=== PATIENT | female | born 1945 | race Caucasian/White ===

== ENCOUNTER 2017-02-22 21:26 | Inpatient (IN) | payer MEDICARE ==
[~2017-02-22] VITALS: Ht 160 cm; Wt 86.1 kg
[~2017-02-22 21:26] MED LIST: CALCIUM600 M2 PO; DIOVAN80 MG PO; LECITHIN-191200 MG PO; LEVOTHYROXIN75 MCG PO; LORTAB 5/3255 MG PO; MAGNESIUM-OX400 MG PO; METFORMIN500 MG PO; MULTI 501 PO
[2017-02-22] MEDS ORDERED: ATORVASTATIN CA10 MG PO (22:12)
[2017-02-22] MEDS ORDERED: CALCIUM 600+D 61 TA1 PO (22:13)
[2017-02-22] MEDS ORDERED: Levaquin PO (22:14)
[2017-02-22] MEDS ORDERED: CLARITIN10 M1 PO (22:15)
[2017-02-22] MEDS ORDERED: LOSARTAN POTASS50 MG PO (22:17)
[2017-02-22] MEDS ORDERED: SERTRALINE HCL50 MG PO (22:18)
[2017-02-22] MEDS ORDERED: COMPAZINE5 MG/TAB PO (22:18)
[2017-02-22] MEDS ORDERED: ZOFRAN ODT4 MG PO (22:20)
[2017-02-22] MEDS ORDERED: MULTI VIT PO (22:21)
[2017-02-22 22:33] LABS: HEMATOCRIT 25.4 % (37.0-47.0); HEMOGLOBIN 8.8 g/dl (12.0-16.0); IMMATURE GRANULOCYTES 0.3 % (0.0-1.0); MEAN CORPUSCULAR HGB 31.5 pG CALC (26.0-32.0); MEAN CORPUSCULAR HGB CONC 34.6 g/L CALC (32.0-36.0); NEUT# 2.25 thou/uL (2.00-7.15); RED BLOOD COUNT 2.79 mill/uL (4.20-5.60); RED CELL DISTRI WIDTH 17.6 % (11.5-15.5)
[2017-02-22 22:47] LABS: ALBUMIN 3.8 g/dL (3.2-5.0); ALKALINE PHOSPHATASE 53 u/l (38-126); ANION GAP 15 (6-22 (CALC)); BILIRUBIN, TOTAL 0.9 mg/dL (0.0-1.4); BUN 17 mg/dL (8-23); BUN/CREATININE RATIO 24 (12-20 (CALC)); CALCIUM 8.6 mg/dL (8.4-10.2); CARBON DIOXIDE 24 mmol/l (22-30); CHLORIDE 98 mmol/l (95-108); CREATININE 0.7 mg/dL (0.5-1.0); GFR > 60 ML/MIN (>=60 (CALC)); GFR FOR AFR.AMER. > 60 ML/MIN (>=60 (CALC)); GLUCOSE 185 mg/dL (82-115); POTASSIUM 4.6 mmol/l (3.5-5.1); SGOT/AST 19 u/l (9-36); SGPT/ALT 46 u/l (11-66); SODIUM 133 mmol/l (137-146); TOTAL PROTEIN 6.1 g/dL (6.3-8.2)
[2017-02-22 22:48] LABS: INFLUENZA A NONE DETECTED (NONE DETECT); INFLUENZA B NONE DETECTED (NONE DETECT)
[2017-02-22 23:25] LABS: URINE BILIRUBIN - DIPSTICK NEGATIVE (NEGATIVE); URINE BLOOD DIPSTICK NEGATIVE (NEGATIVE); URINE CLARITY CLEAR; URINE COLOR YELLOW; URINE GLUCOSE - DIPSTICK NEGATIVE (NEGATIVE); URINE KETONE NEGATIVE (NEGATIVE); URINE LEUK ESTERASE TRACE (NEGATIVE); URINE NITRITE - DIPSTICK NEGATIVE (Negative); URINE PROTEIN - DIPSTICK NEGATIVE (NEG-TRACE); URINE SPECIFIC GRAVITY 1.015; URINE UROBILINOGEN - DIPSTICK 0.2 E.U./dL (0.2)
[2017-02-23 01:34] VITALS: BP 115/60
[2017-02-23 04:22] VITALS: BP 109/69
[2017-02-23 07:45] VITALS: BP 121/69
[2017-02-23 12:35] LABS: C-REACTIVE PROTEIN > 9.0 mg/dL (0-0.9)
[2017-02-23 15:29] VITALS: BP 119/71
[2017-02-23 19:38] VITALS: BP 115/62
[2017-02-24 04:11] VITALS: BP 100/64
[2017-02-24 05:54] LABS: HEMATOCRIT 22.8 % (37.0-47.0); HEMOGLOBIN 7.9 g/dl (12.0-16.0); MEAN CELL VOLUME 91.6 fL CALC (80.0-100.0); MEAN CORPUSCULAR HGB 31.7 pG CALC (26.0-32.0); MEAN CORPUSCULAR HGB CONC 34.6 g/L CALC (32.0-36.0); NEUT# 2.3 thou/uL (2.00-7.15); RED BLOOD COUNT 2.49 mill/uL (4.20-5.60); RED CELL DISTRI WIDTH 17.3 % (11.5-15.5)
[2017-02-24 06:09] LABS: ANION GAP 12 (6-22 (CALC)); BUN 14 mg/dL (8-23); BUN/CREATININE RATIO 26 (12-20 (CALC)); CALCIUM 8.7 mg/dL (8.4-10.2); CARBON DIOXIDE 26 mmol/l (22-30); CHLORIDE 102 mmol/l (95-108); CREATININE 0.5 mg/dL (0.5-1.0); GFR > 60 ML/MIN (>=60 (CALC)); GFR FOR AFR.AMER. > 60 ML/MIN (>=60 (CALC)); GLUCOSE 231 mg/dL (82-115); POTASSIUM 4.5 mmol/l (3.5-5.1); SODIUM 135 mmol/l (137-146)
[2017-02-24 08:27] VITALS: BP 121/68
[2017-02-24] MEDS ORDERED: PREDNISONE20 MG PO (11:35)
== END 2017-02-24 13:23 | disposition home or self-care (01) | DRG 545 ==
LOC: ENPENDDIS → ED 21:26 → ED-I 02-23 → ED 02-23 00:44 → MS2 02-23 00:45
PROVIDERS: Emergency Medicine; Internal Medicine; Nurse Practitioner Family; ADMIT Internal Medicine; ATTEND Internal Medicine
DX: M35.3 Polymyalgia rheumatica (principal); D61.810 Antineoplastic chemotherapy induced pancytopenia; E11.69 Type 2 diabetes mellitus with other specified complication; T45.1X5A Adverse effect of antineoplastic and immunosuppressive drugs, initial encounter; C50.919 Malignant neoplasm of unspecified site of unspecified female breast; Z79.84 Long term (current) use of oral hypoglycemic drugs; E78.5 Hyperlipidemia, unspecified; I10 Essential (primary) hypertension; F32.9 Major depressive disorder, single episode, unspecified; E03.9 Hypothyroidism, unspecified

== ENCOUNTER 2017-03-20 12:57 | Inpatient (IN) | payer MEDICARE ==
[~2017-03-20] VITALS: Ht 160 cm; Wt 84.4 kg
[~2017-03-20 12:57] MED LIST changes: +ATORVASTATIN CA10 MG PO; +CALCIUM 600+D 61 TA1 PO; +CLARITIN10 M1 PO; +COMPAZINE5 MG/TAB PO; +LOSARTAN POTASS50 MG PO; +Levaquin PO; +MULTI VIT PO; +PREDNISONE20 MG PO; +SERTRALINE HCL50 MG PO; +ZOFRAN ODT4 MG PO
[2017-03-20 15:14] LABS: HEMOGLOBIN 7.7 g/dl (12.0-16.0); IMMATURE GRANULOCYTES 1.4 % (0.0-1.0); MEAN CELL VOLUME 96.6 fL CALC (80.0-100.0); MEAN CORPUSCULAR HGB 32.4 pG CALC (26.0-32.0); MEAN CORPUSCULAR HGB CONC 33.5 g/L CALC (32.0-36.0); NEUT# 2.97 thou/uL (2.00-7.15); RED BLOOD COUNT 2.38 mill/uL (4.20-5.60); RED CELL DISTRI WIDTH 19.9 % (11.5-15.5)
[2017-03-20 15:57] LABS: ALBUMIN 3.6 g/dL (3.2-5.0); ALKALINE PHOSPHATASE 56 u/l (38-126); ANION GAP 16 (6-22 (CALC)); BUN 13 mg/dL (8-23); BUN/CREATININE RATIO 20 (12-20 (CALC)); CALCIUM 8.6 mg/dL (8.4-10.2); CARBON DIOXIDE 24 mmol/l (22-30); CHLORIDE 100 mmol/l (95-108); CREATININE 0.7 mg/dL (0.5-1.0); GFR > 60 ML/MIN (>=60 (CALC)); GFR FOR AFR.AMER. > 60 ML/MIN (>=60 (CALC)); GLUCOSE 179 mg/dL (82-115); POTASSIUM 3.9 mmol/l (3.5-5.1); SGOT/AST 21 u/l (9-36); SGPT/ALT 45 u/l (11-66); SODIUM 135 mmol/l (137-146)
[2017-03-20 16:53] LABS: URINE BILIRUBIN - DIPSTICK NEGATIVE (NEGATIVE); URINE BLOOD DIPSTICK NEGATIVE (NEGATIVE); URINE CLARITY CLEAR; URINE COLOR YELLOW; URINE GLUCOSE - DIPSTICK NEGATIVE (NEGATIVE); URINE KETONE NEGATIVE (NEGATIVE); URINE LEUK ESTERASE TRACE (NEGATIVE); URINE NITRITE - DIPSTICK NEGATIVE (Negative); URINE PH 5.5 (4.5-8.0); URINE PROTEIN - DIPSTICK NEGATIVE (NEG-TRACE); URINE SPECIFIC GRAVITY 1.015; URINE UROBILINOGEN - DIPSTICK 0.2 E.U./dL (0.2)
[2017-03-20 18:53] VITALS: BP 121/74
[2017-03-21] VITALS (9 sets, daily range): BP systolic 92–143; BP diastolic 53–83
[2017-03-21 06:05] LABS: IMMATURE GRANULOCYTES 1.8 % (0.0-1.0); MEAN CELL VOLUME 98.6 fL CALC (80.0-100.0); MEAN CORPUSCULAR HGB 33.2 pG CALC (26.0-32.0); MEAN CORPUSCULAR HGB CONC 33.7 g/L CALC (32.0-36.0); NEUT# 2.52 thou/uL (2.00-7.15); RED BLOOD COUNT 2.11 mill/uL (4.20-5.60); RED CELL DISTRI WIDTH 19.9 % (11.5-15.5)
[2017-03-21 06:08] LABS: HEMATOCRIT 20.8 % (37.0-47.0)
[2017-03-21 06:25] LABS: ANION GAP 14 (6-22 (CALC)); BUN 9 mg/dL (8-23); BUN/CREATININE RATIO 14 (12-20 (CALC)); CALCIUM 7.9 mg/dL (8.4-10.2); CARBON DIOXIDE 22 mmol/l (22-30); CHLORIDE 104 mmol/l (95-108); CREATININE 0.6 mg/dL (0.5-1.0); GFR > 60 ML/MIN (>=60 (CALC)); GFR FOR AFR.AMER. > 60 ML/MIN (>=60 (CALC)); GLUCOSE 128 mg/dL (82-115); POTASSIUM 4.1 mmol/l (3.5-5.1); SODIUM 136 mmol/l (137-146)
[2017-03-22 04:32] VITALS: BP 117/74
[2017-03-22 06:00] LABS: HEMATOCRIT 25.9 % (37.0-47.0); HEMOGLOBIN 8.7 g/dl (12.0-16.0); MEAN CELL VOLUME 95.6 fL CALC (80.0-100.0); MEAN CORPUSCULAR HGB 32.1 pG CALC (26.0-32.0); MEAN CORPUSCULAR HGB CONC 33.6 g/L CALC (32.0-36.0); NEUT# 4.08 thou/uL (2.00-7.15); RED BLOOD COUNT 2.71 mill/uL (4.20-5.60); RED CELL DISTRI WIDTH 18.8 % (11.5-15.5)
[2017-03-22 06:18] LABS: ANION GAP 14 (6-22 (CALC)); BUN 9 mg/dL (8-23); BUN/CREATININE RATIO 18 (12-20 (CALC)); C-REACTIVE PROTEIN 7.1 mg/dL (0-0.9); CALCIUM 8.6 mg/dL (8.4-10.2); CARBON DIOXIDE 25 mmol/l (22-30); CHLORIDE 102 mmol/l (95-108); CREATININE 0.5 mg/dL (0.5-1.0); GFR > 60 ML/MIN (>=60 (CALC)); GFR FOR AFR.AMER. > 60 ML/MIN (>=60 (CALC)); GLUCOSE 246 mg/dL (82-115); MAGNESIUM 1.9 mg/dL (1.6-2.3); POTASSIUM 4.5 mmol/l (3.5-5.1); SODIUM 137 mmol/l (137-146)
[2017-03-22 06:25] LABS: IMMATURE GRANULOCYTES 5.2 % (0.0-1.0)
[2017-03-22 08:00] VITALS: BP 124/75
[2017-03-22 10:52] VITALS: BP 144/79
[2017-03-22] MEDS ORDERED: PREDNISONE10 MG PO (13:05)
== END 2017-03-22 14:28 | disposition home or self-care (01) | DRG 812 ==
LOC: ED 12:57 → ED-I 14:04 → ED 14:04 → ED-I 17:01 → ED 17:19 → MS2 17:20
PROVIDERS: Emergency Medicine; ADMIT Internal Medicine; ATTEND Internal Medicine
PROC: 30233N1 Transfusion of Nonautologous Red Blood Cells into Peripheral Vein, Percutaneous Approach (ICD-10-PCS; principal; 2017-03-21)
DX: D64.81 Anemia due to antineoplastic chemotherapy (principal); G62.9 Polyneuropathy, unspecified; C50.919 Malignant neoplasm of unspecified site of unspecified female breast; T45.1X5A Adverse effect of antineoplastic and immunosuppressive drugs, initial encounter; M25.50 Pain in unspecified joint; I10 Essential (primary) hypertension; E03.9 Hypothyroidism, unspecified; E78.5 Hyperlipidemia, unspecified; F17.200 Nicotine dependence, unspecified, uncomplicated; F32.9 Major depressive disorder, single episode, unspecified; E11.9 Type 2 diabetes mellitus without complications; M35.3 Polymyalgia rheumatica
CPT/HCPCS: G0378; J1650; P9016

== ENCOUNTER 2017-04-06 19:58 | Inpatient (IN) | payer MEDICARE ==
[~2017-04-06] VITALS: Ht 160 cm; Wt 84.0 kg
[~2017-04-06 19:58] MED LIST changes: +PREDNISONE10 MG PO
--- NOTE | 2017-04-06 21:06 | NUR ---
PT TO RM 15 VIA WHEELCHAIR.
--- NOTE | 2017-04-06 21:20 | NUR ---
DR LEYVA AT BEDSIDE
[2017-04-06 22:00] LABS: URINE BILIRUBIN - DIPSTICK NEGATIVE (NEGATIVE); URINE BLOOD DIPSTICK TRACE-INTACT (NEGATIVE); URINE CLARITY CLEAR; URINE COLOR YELLOW; URINE GLUCOSE - DIPSTICK NEGATIVE (NEGATIVE); URINE KETONE NEGATIVE (NEGATIVE); URINE LEUK ESTERASE NEGATIVE (NEGATIVE); URINE NITRITE - DIPSTICK NEGATIVE (Negative); URINE PROTEIN - DIPSTICK NEGATIVE (NEG-TRACE); URINE SPECIFIC GRAVITY 1.015; URINE UROBILINOGEN - DIPSTICK 0.2 E.U./dL (0.2)
[2017-04-06 22:37] LABS: HEMATOCRIT 27.1 % (37.0-47.0); IMMATURE GRANULOCYTES 0.3 % (0.0-1.0); MEAN CELL VOLUME 97.1 fL CALC (80.0-100.0); MEAN CORPUSCULAR HGB 32.3 pG CALC (26.0-32.0); MEAN CORPUSCULAR HGB CONC 33.2 g/L CALC (32.0-36.0); NEUT# 5.11 thou/uL (2.00-7.15); RED BLOOD COUNT 2.79 mill/uL (4.20-5.60); RED CELL DISTRI WIDTH 16.3 % (11.5-15.5)
--- NOTE | 2017-04-06 22:42 | NUR ---
PT TO XRAY.
[2017-04-06 22:43] LABS: ALBUMIN 3.4 g/dL (3.2-5.0); ALKALINE PHOSPHATASE 65 u/l (38-126); ANION GAP 13 (6-22 (CALC)); BILIRUBIN, TOTAL 0.8 mg/dL (0.0-1.4); BUN 11 mg/dL (8-23); BUN/CREATININE RATIO 16 (12-20 (CALC)); CALCIUM 8.3 mg/dL (8.4-10.2); CARBON DIOXIDE 25 mmol/l (22-30); CHLORIDE 100 mmol/l (95-108); CREATININE 0.7 mg/dL (0.5-1.0); GFR > 60 ML/MIN (>=60 (CALC)); GFR FOR AFR.AMER. > 60 ML/MIN (>=60 (CALC)); GLUCOSE 185 mg/dL (82-115); SGOT/AST 20 u/l (9-36); SGPT/ALT 47 u/l (11-66); SODIUM 134 mmol/l (137-146); TOTAL PROTEIN 5.9 g/dL (6.3-8.2)
[2017-04-06 22:51] LABS: INFLUENZA A NONE DETECTED (NONE DETECT); INFLUENZA B NONE DETECTED (NONE DETECT)
--- NOTE | 2017-04-06 23:10 | NUR ---
RETURNED FROM CT.
--- NOTE | 2017-04-06 23:10 | NUR ---
LAB AT BEDSIDE FOR BC#2
--- NOTE | 2017-04-07 03:00 | NUR ---
SPOUSE REQUESTED INFO ON DISPOSITION, INFORMED DR LEYVA WOULD BE IN SHORTLY.
--- NOTE | 2017-04-07 03:35 | NUR ---
DR LEYVA AT BEDSIDE TO DISCUSS ADMISSION
--- NOTE | 2017-04-07 04:22 | NUR ---
PT WITHOUT DISTRESS. WAITING ON RM ASSIGNMENT.
--- NOTE | 2017-04-07 04:28 | NUR ---
REPORT CALLED TO [facility]
--- NOTE | 2017-04-07 04:30 | NUR ---
PT TRANSFERRED TO FLOOR VIA STRETCHER IN STABLE CONDITION ACCOMPANIED BY LOUIS CHAVEZ AND SPOUSE;PT AMBULATED TO BEDSIDE WITH A STEADY GAIT;PT ORIENTED TO ROOM AND CALL LIGHT SYSTEM AND VERBALIZES UNDERSTANDING;ASSESSMENT COMPLETED;PT A&O X3;POWER PORT TO LEFT CHEST FLUSHED AND PATENT;PT DENIES ANY PAIN OR DISCOMFORTS AT THIS TIME;SKIN INTACT;BS OF 160 OBTAINED;PT NOTED TO BE A RIGHT MASECTOMY PT,LIMB ALERT PLACED ON PT;PT REPORTS LAST BM TO BE ON 04/06;PT DENIES ANY NEEDS AT THIS TIME;PT EDUCATED TO CALL FOR ASSISTANCE IF NEEDED;ALL SAFETY PRECAUTIONS REINFORCED;BED IN LOWEST POSITION WITH CALL LIGHT IN REACH;WILL CONTINUE TO MONITOR
--- NOTE | 2017-04-07 04:35 | NUR ---
PT TO 289 WITH BELONGINGS.
[2017-04-07 04:50] VITALS: BP 107/75
[2017-04-07 07:30] VITALS: BP 103/65
--- NOTE | 2017-04-07 07:30 | NUR ---
REPORT RECIVED FROM LOUIS MEYER. ASSESSMENT COMPLETD. PT SITTING UP IN BED. NO C/O AT THIS TIME. VSS. POC DISCUSSED. PT VERBALIZES UNDERSTANDING. WILL CONTINUE TO MONITOR. CALL LIGHT IN REACH.
[2017-04-07 13:25] LABS: MAGNESIUM 1.8 mg/dL (1.6-2.3)
--- NOTE | 2017-04-07 14:01 | NUR ---
PT MEDICATED FOR BLE PAIN. IVF INFUSING AT THIS TIME PER MD ORDER. AT BEDSIDE. NO C/O AT THIS TIME. WILL CONTINUE TO MONITOR. CALL LIGHT IN REACH.
[2017-04-07 15:38] VITALS: BP 104/64
[2017-04-07 19:25] VITALS: BP 100/57
--- NOTE | 2017-04-07 21:00 | NUR ---
PT IN BED A/O X3, RESPIRATIONS EVEN AND UNLABORED. DENIES PAIN AT THIS TIME. IV FLUIDS INFUSING TO LEFT SUBCLAVIAN PORT. AT BED SIDE. WILL CONTINUE TO MONITOR.
[2017-04-08 00:02] VITALS: BP 112/67
--- NOTE | 2017-04-08 01:00 | NUR ---
OOB TO BATHROOM VOIDING CLEAR YELLOW URINE, THEN BACK TO BED. CALL LIGHT IN REACH.
[2017-04-08 04:41] VITALS: BP 111/61
--- NOTE | 2017-04-08 05:40 | NUR ---
MORNING BLOOD WORK DRAWN FROM LEFT SUBCLAVIAN PORT WITH GREAT BLOOD RETURN.
[2017-04-08 06:03] LABS: ANION GAP 12 (6-22 (CALC)); BUN 9 mg/dL (8-23); BUN/CREATININE RATIO 17 (12-20 (CALC)); CALCIUM 8.6 mg/dL (8.4-10.2); CARBON DIOXIDE 25 mmol/l (22-30); CHLORIDE 104 mmol/l (95-108); CREATININE 0.5 mg/dL (0.5-1.0); GFR > 60 ML/MIN (>=60 (CALC)); GFR FOR AFR.AMER. > 60 ML/MIN (>=60 (CALC)); GLUCOSE 248 mg/dL (82-115); POTASSIUM 4.7 mmol/l (3.5-5.1); SODIUM 137 mmol/l (137-146)
[2017-04-08 06:05] LABS: HEMATOCRIT 28.3 % (37.0-47.0); HEMOGLOBIN 9.5 g/dl (12.0-16.0); IMMATURE GRANULOCYTES 1.3 % (0.0-1.0); MEAN CELL VOLUME 96.6 fL CALC (80.0-100.0); MEAN CORPUSCULAR HGB 32.4 pG CALC (26.0-32.0); MEAN CORPUSCULAR HGB CONC 33.6 g/L CALC (32.0-36.0); NEUT# 7.36 thou/uL (2.00-7.15); RED BLOOD COUNT 2.93 mill/uL (4.20-5.60); RED CELL DISTRI WIDTH 15.5 % (11.5-15.5)
--- NOTE | 2017-04-08 08:11 | NUR ---
ASSESSMENT IS COMPLETED: IV SITE IS FREE FROM REDNESS OR EDMEA. CONTINUE TO OBSERVE AND MONITOR.
[2017-04-08 08:12] VITALS: BP 118/72
[2017-04-08 09:39] VITALS: BP 118/72
--- NOTE | 2017-04-08 12:30 | NUR ---
PT IS RELAXING IN BED FAMILY IN THE ROOM. NO DISTRESS NOTED. IV SITE IS FREE FROM REDNESS OR EDEMA. CONTINUE TO OBSERVE AND MONITOR.
[2017-04-08] MEDS ORDERED: PREDNISONE10 MG PO (13:09)
--- NOTE | 2017-04-08 15:51 | NUR ---
Spoke with Ms. Peña at discharge and educated her on dose change of prednisone.
--- NOTE | 2017-04-08 16:23 | NUR ---
PT C/O CHEST TIGHTNESS , AND THEN EKG, TROPONIN AND BREATHING TX ORDERED/ DISCHARGE INSTRUCTIONS TYPED AND READY. CONTINUE TO OSBERVE AND MONITOR.
--- NOTE | 2017-04-08 17:58 | NUR ---
IV SITE DISCONTINEUD CATHETER INTACT BY SHAYY TERRAZAS. PT WAITING FOR SUPPER AND THEN WILL GO HOME DISCHARGE INSTRUCTIONS GIVEN AND VERBALIZED UNDERSTANDING
--- NOTE | 2017-04-08 18:24 | NUR ---
PT TRANSPORTED TO THE CAR VIA WC ACCOMPANIED BY STAFF IV SITE IS DISCONTINUED WITH CATHETER INTACT. Discharge instructions given. Patient verbalizes understanding of same. Discharged in stable condition via Wheelchair to Home with family. All belongings sent with pt.
== END 2017-04-08 18:16 | disposition home or self-care (01) | DRG 864 ==
LOC: ED 19:58 → ED-I 04-07 03:00 → ED 04-07 03:57 → MS2 04-07 03:58
PROVIDERS: Emergency Medicine; Nurse Practitioner Family; ADMIT Internal Medicine; ATTEND Internal Medicine
DX: R50.2 Drug induced fever (principal); E11.69 Type 2 diabetes mellitus with other specified complication; K76.0 Fatty (change of) liver, not elsewhere classified; M35.3 Polymyalgia rheumatica; T45.1X5A Adverse effect of antineoplastic and immunosuppressive drugs, initial encounter; C50.919 Malignant neoplasm of unspecified site of unspecified female breast; I10 Essential (primary) hypertension; E03.9 Hypothyroidism, unspecified; E78.5 Hyperlipidemia, unspecified; F17.200 Nicotine dependence, unspecified, uncomplicated; F41.9 Anxiety disorder, unspecified; Z79.818 Long term (current) use of other agents affecting estrogen receptors and estrogen levels; Z79.84 Long term (current) use of oral hypoglycemic drugs

== ENCOUNTER 2019-08-01 | Emergency (ER) | payer MEDICARE ==
[2019-08-01 20:16] LABS: IMMATURE GRANULOCYTES 0.4 % (0.0-5.0); MEAN CORPUSCULAR HGB 29.7 pG CALC (26.0-32.0); MEAN CORPUSCULAR HGB CONC 33.3 g/L CALC (32.0-36.0); NEUT# 5.66 thou/uL (2.00-7.15); RED BLOOD COUNT 4.28 mill/uL (4.20-5.60); RED CELL DISTRI WIDTH 14.3 % (11.5-15.5)
[2019-08-01 20:16] LABS: URINE BILIRUBIN - DIPSTICK NEGATIVE (NEGATIVE); URINE BLOOD DIPSTICK NEGATIVE (NEGATIVE); URINE COLOR YELLOW; URINE GLUCOSE - DIPSTICK 100 mg/dL (NEGATIVE); URINE KETONE NEGATIVE (NEGATIVE); URINE LEUK ESTERASE NEGATIVE (NEGATIVE); URINE NITRITE - DIPSTICK NEGATIVE (Negative); URINE PROTEIN - DIPSTICK TRACE mg/dL (NEG-TRACE); URINE SPECIFIC GRAVITY 1.015
[2019-08-01 20:18] LABS: HEMATOCRIT 38.1 % (37.0-47.0); HEMOGLOBIN 12.7 g/dl (12.0-16.0)
[2019-08-01 20:36] LABS: ALKALINE PHOSPHATASE 79 u/l (38-126); BILIRUBIN, TOTAL 0.9 mg/dL (0.0-1.4); BUN 9 mg/dL (8-23); BUN/CREATININE RATIO 21 (12-20 (CALC)); CARBON DIOXIDE 25 mmol/l (22-30); CHLORIDE 94 mmol/l (95-108); CREATININE 0.4 mg/dL (0.5-1.0); GFR > 60 ML/MIN (>=60 (CALC)); GFR FOR AFR.AMER. > 60 ML/MIN (>=60 (CALC)); LIPASE 476 u/l (23-300); POTASSIUM 4.6 mmol/l (3.5-5.1); SGOT/AST 35 u/l (9-36)
[2019-08-01 20:37] LABS: ALBUMIN 4.1 g/dL (3.2-5.0); ANION GAP 15 (6-22 (CALC)); SODIUM 129 mmol/l (137-146); TOTAL PROTEIN 7.3 g/dL (6.3-8.2)
[2019-08-01] MEDS ORDERED: LEVAQUIN500 MG PO (21:13)
== END 2019-08-01 22:23 | disposition home or self-care (01) ==
DX: J18.9 Pneumonia, unspecified organism (principal); J02.0 Streptococcal pharyngitis; E87.1 Hypo-osmolality and hyponatremia; E03.9 Hypothyroidism, unspecified; C50.919 Malignant neoplasm of unspecified site of unspecified female breast; Z79.899 Other long term (current) drug therapy
CPT/HCPCS: J1956

== ENCOUNTER 2019-12-12 12:48 | Observation (INO) | payer MEDICARE ==
[~2019-12-12] VITALS: Ht 160 cm; Wt 70.0 kg
[~2019-12-12 12:48] MED LIST changes: +LEVAQUIN500 MG PO
--- NOTE | 2019-12-12 13:02 | NUR ---
PATIENT TO ROOM VIA WHEELCHAIR AND PHYSICIAN NOTIFIED OF PATIENT STATUS
--- NOTE | 2019-12-12 13:35 | NUR ---
RIGHT SIDE PORT ACCESSED AND LABS COLLECTED. PT REPORTS 6/10 GENERALIZED BACK PAIN. PT REPOSITIONED FOR COMFORT.
[2019-12-12 13:56] LABS: HEMATOCRIT 34.4 % (37.0-47.0); HEMOGLOBIN 11.4 g/dl (12.0-16.0); IMMATURE GRANULOCYTES 0.3 % (0.0-5.0); MEAN CORPUSCULAR HGB 27.6 pG CALC (26.0-32.0); MEAN CORPUSCULAR HGB CONC 33.1 g/dL CAL (32.0-36.0); NEUT# 5.92 thou/uL (2.00-7.15); RED BLOOD COUNT 4.13 mill/uL (4.20-5.60); RED CELL DISTRI WIDTH 15.9 % (11.5-15.5)
[2019-12-12 13:57] LABS: MEAN CELL VOLUME 83.3 fL CALC (80.0-100.0)
--- NOTE | 2019-12-12 14:05 | NUR ---
PT MEDICATED FOR 6/10 GENERALIZED BACK PAIN. PT AWARE OF PLAN OF CARE AND WAIT TIME. PT AND DENIES ANY NEEDS. CALL VALENTINE WITHIN [facility].
[2019-12-12 14:09] LABS: ALBUMIN 3.7 g/dL (3.2-5.0); ALKALINE PHOSPHATASE 73 u/l (38-126); ANION GAP 12 (6-22 (CALC)); BUN 12 mg/dL (8-23); BUN/CREATININE RATIO 30 (12-20 (CALC)); CARBON DIOXIDE 29 mmol/l (22-30); CHLORIDE 93 mmol/l (95-108); CREATININE 0.4 mg/dL (0.5-1.0); GFR > 60 ML/MIN (>=60 (CALC)); GFR FOR AFR.AMER. > 60 ML/MIN (>=60 (CALC)); LIPASE 120 u/l (23-300); POTASSIUM 4.2 mmol/l (3.5-5.1); SGOT/AST 33 u/l (9-36); SODIUM 130 mmol/l (137-146); TOTAL PROTEIN 6.4 g/dL (6.3-8.2)
--- NOTE | 2019-12-12 15:00 | NUR ---
PT PAIN NOW 4/10 AND IS RESTING COMFORTABLY IN STRTECHER AND DENIES ANY NEEDS. CALL VALENTINE WITHIN REACH.
[2019-12-12] MEDS ORDERED: METFORMIN500 M2 PO (15:02)
[2019-12-12] MEDS ORDERED: COZAAR100 MG PO (15:03)
[2019-12-12] MEDS ORDERED: OMEPRAZOLE DR20 MG (15:03)
[2019-12-12] MEDS ORDERED: KEYTRUDA100 MG/4 M (15:09)
[2019-12-12 15:39] LABS: URINE BILIRUBIN - DIPSTICK NEGATIVE (NEGATIVE); URINE BLOOD DIPSTICK NEGATIVE (NEGATIVE); URINE COLOR YELLOW; URINE GLUCOSE - DIPSTICK NEGATIVE (NEGATIVE); URINE KETONE 15 mg/dL (NEGATIVE); URINE LEUK ESTERASE NEGATIVE (NEGATIVE); URINE NITRITE - DIPSTICK NEGATIVE (Negative); URINE PROTEIN - DIPSTICK NEGATIVE (NEG-TRACE); URINE SPECIFIC GRAVITY 1.025; URINE UROBILINOGEN - DIPSTICK 0.2 E.U./dL (0.2)
--- NOTE | 2019-12-12 16:00 | NUR ---
AND MLP AT BEDSIDE TO DISCUSS PLAN OF CARE AND NEED FOR ADMISSION.
--- NOTE | 2019-12-12 16:51 | NUR ---
SBAR PRINTED TO FLOOR
--- NOTE | 2019-12-12 17:35 | NUR ---
PT C/O 03/05 PAIN TO ABD WHILE TRYING TO HAVE A BM. DR PEREZ CALLED AND HE WILL BE PLACING ORDERS FOR PAIN.
--- NOTE | 2019-12-12 17:48 | NUR ---
PT REPORT CALLED TO ZENON.
--- NOTE | 2019-12-12 18:20 | NUR ---
PT MEDICATED WITH MORPHINE FOR 8/10 PAIN TO ABD. PT ABLE TO BURP AND REPORTED A RELIEF OF THE NAUSEA.
--- NOTE | 2019-12-12 18:35 | NUR ---
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
[2019-12-12 18:40] VITALS: BP 119/72
--- NOTE | 2019-12-12 18:40 | NUR ---
rec'd to icu5 as med surg tele overflow per stretcher from er. transferred self to bed. bed weight obtained. denies resp diff or abd pain. pt admits to "trouble remembering". o2 cont per nc. materials associate shows sinus tach hr 104. rt chest port in place-vanco cont-ivf began as ordered. history obtained per pt & er record. oriented to room. bed alarm activated. fall precautions initiated.
--- NOTE | 2019-12-12 22:10 | NUR ---
amb to br. matias well. c/o back pain. morphine 2mg ivp given.
--- NOTE | 2019-12-12 23:00 | NUR ---
eyes closed. no further c/o voiced.
[2019-12-12 23:15] VITALS: BP 125/77
[2019-12-13] VITALS (7 sets, daily range): BP systolic 125–162; BP diastolic 75–90
--- NOTE | 2019-12-13 00:01 | NUR ---
rn cardiac rehab shows sinus tach hr 108.
--- NOTE | 2019-12-13 02:30 | NUR ---
c/o back pain & nausea. morphine 2mg iv & zofran 8mg po given.
--- NOTE | 2019-12-13 03:15 | NUR ---
eyes closed. no further c/o
--- NOTE | 2019-12-13 04:00 | NUR ---
mail handler shows sinus tach hr 115.
--- NOTE | 2019-12-13 05:30 | NUR ---
up to br. polly well. no acute distress.
--- NOTE | 2019-12-13 06:50 | NUR ---
RECVD REPORT FROM LOUIS SINGH AT START OF SHIFT.
[2019-12-13 07:27] LABS: HEMATOCRIT 32.2 % (37.0-47.0); HEMOGLOBIN 10.5 g/dl (12.0-16.0); IMMATURE GRANULOCYTES 0.3 % (0.0-5.0); MEAN CELL VOLUME 84.5 fL CALC (80.0-100.0); MEAN CORPUSCULAR HGB 27.6 pG CALC (26.0-32.0); MEAN CORPUSCULAR HGB CONC 32.6 g/dL CAL (32.0-36.0); NEUT# 6.79 thou/uL (2.00-7.15); RED BLOOD COUNT 3.81 mill/uL (4.20-5.60); RED CELL DISTRI WIDTH 15.7 % (11.5-15.5)
--- NOTE | 2019-12-13 07:31 | NUR ---
PT ASSISTED UP TO RECLINER BY WINDOW. PT C/O HEADACHE BUT REFUSED TYLENOL BC "IT DOESNT DO ANYTHING FOR HER" & MORPHINE BC "SHES TRYING TO STAY AWAY FROM THAT STUFF". PT REQUESTS ADVIL, WILL NOTIFY THE MD WHEN ON UNIT. PT MINIMAL ASSIST UP, STEADY GAIT, GETS CAUGHT UP IN MONITORING CORDS.
[2019-12-13 07:39] LABS: ALBUMIN 3.1 g/dL (3.2-5.0); ALKALINE PHOSPHATASE 79 u/l (38-126); ANION GAP 10 (6-22 (CALC)); BUN 8 mg/dL (8-23); BUN/CREATININE RATIO 22 (12-20 (CALC)); CARBON DIOXIDE 29 mmol/l (22-30); CHLORIDE 94 mmol/l (95-108); CREATININE 0.3 mg/dL (0.5-1.0); GFR > 60 ML/MIN (>=60 (CALC)); GFR FOR AFR.AMER. > 60 ML/MIN (>=60 (CALC)); SGOT/AST 33 u/l (9-36); SODIUM 128 mmol/l (137-146); TOTAL PROTEIN 5.6 g/dL (6.3-8.2)
--- NOTE | 2019-12-13 07:41 | NUR ---
ASSISTED PT TO BATHROOM
--- NOTE | 2019-12-13 07:54 | NUR ---
PT SITTING UP IN CHAIR, EATING BREAKFAST.
--- NOTE | 2019-12-13 08:21 | NUR ---
ASSISTED PT UP TO BATHROOM ROOM
--- NOTE | 2019-12-13 09:05 | NUR ---
PT AMBULATED BACK TO BED, THEN BACK TO THE TOILET AFTER PT HAD ACCIDENT IN UNDERWARE. PT ABLE TO HAVE MODERATE SOFT ZAMORA BM. PT REQUESTS TO BE OFF MONITORING EQUIPMENT FOR AWHILE TO BE ABLE TO MOVE QUICKLY TO THE TOILET.
--- NOTE | 2019-12-13 09:53 | NUR ---
DR PEREZ @BEDSIDE WITH PT, ASSESSING & DISCUSSING POC.
--- NOTE | 2019-12-13 10:00 | NUR ---
pt refused milk of magnesium bc she is worried about the calcium intake, citing theres a lot of calcium in ensure and she's not supposed to have alot of it.
--- NOTE | 2019-12-13 10:27 | NUR ---
PT GIVEN JAD HOFFMAN PER PT REQUEST. PT REQUEST TO BE ON MSU FOR SHOWER. CALLED FOR A BED ASSIGNMENT. PT RECVING CALLS FROM [facility].
[2019-12-13] MEDS ORDERED: COZAAR50 MG PO (10:30)
--- NOTE | 2019-12-13 11:32 | NUR ---
IN ROOM TO DELIVER LUNCH, PT IN BED. STATES SHE JUST WANTS TO SLEEP. CURTAINS DRAWN, DOOR CLOSED.
--- NOTE | 2019-12-13 13:39 | NUR ---
PT TRANSFERED FROM ICU TO MED-SURG ROOM 271. RECIEVED REPORT FROM MK HOLLOWAY. ASSESMENT AND VITALS OBTAINED. BP 135/81, HR 103, O2 91% ON ROOM AIR.INFORMED IN REPORT THAT PT WAS ON 2L NASAL CANNUAL BUT PT PREFER TO GO WITH OUT IT UNTIL NEEDED. HEART RHYTHM NORMAL, BOWEL SOUNDS HYPOACTIVE IN LOWER QUADRANTS AND ACTIVE IN UPPER QUADRANTS, LUNG SOUNDS CLEAR. ABDOMEN IS SLIGHTLY DISTENDED ANS SOFT BUT PT REPORTS THAT BEING NORMAL. RADIAL AND PEDAL PULSES ARE STRONG, NO EDEMA. NORMAL CAPILLARY REFILL. INFORMED IN REPORT THAT MOTRION GIVEN FOR LOWER BACK AND ABDOMEN PAIN AND ZOFRAN GIVEN FOR NAUSEA. PT DENIES ANY OTHER PAINS OR DISCOMFORTS AT THIS TIME. PORT IN RIGHT SUBCLAVIAN FLUSHED, SITE APPEARS HEALTHY AND PATENT. ALL SAFTEY PRECAUTIONS IN PLACE WITH CALL LIGHT IN REACH. WILL CONTINUE TO MONITOR PAIN AND PT.
--- NOTE | 2019-12-13 18:09 | NUR ---
PT RESTING IN SEMI FOWLERS POSITION. BREATHING IS EVEN AND UNLABORED. PT CONPLAINS OF NAUSEA, ZOFRAN GIVEN AT THIS TIME. IV FLUIDS RUNNING AT 100 ML ORDERED, SITE APPEARS HEALTHY AND PATENT. PT DENIES ANY OTHER COMPLAINTS AT THIS TIME. ALL SAFTEY PRECAUTIONS IN PLACE WITH CALL LIGHT IN REACH. WILL CONTINUE TO MONITOR.
--- NOTE | 2019-12-13 21:20 | NUR ---
PT C/O FEELING DISTENDED IN HER BLADDER AREA AND FEELING LIKE SHE NEEDS TO URINATE FREQUENTLY, BUT IS NOT PASSING MUCH URINE EACH TIME SHE GETS UP. BLADDER AREA PALPATED AND IS DISTENDED. BLADDER SCANNED 744CC AND PHYSICIAN NOTIFIED. ORDERS WERE RECEIVED.
--- NOTE | 2019-12-13 21:45 | NUR ---
16FR ALVAREZ CATHETER PLACED FOR URINARY RETENTION.
--- NOTE | 2019-12-14 02:00 | NUR ---
PT UP TO BSC AND BACK TO BED.
--- NOTE | 2019-12-14 02:50 | NUR ---
PT MEDICATED FOR HEADACHE AND BURNING IN URETHRA/BLADDER AREA. PT IS ASKING FOR ALVAREZ CATHETER TO BE PULLED, DISCUSSED W/PT REGARDING BLADDER RETENTION AND ALLOWING THE PAIN MEDICATION A CHANCE TO MAKE HER MORE COMFORTABLE. AGREED. PT'S EYES ARE CLOSED AND RESTFULL UPON MY LEAVING ROOM.
--- NOTE | 2019-12-14 03:44 | NUR ---
PT APPEARS TO BE SLEEPING. NO S/O DISTRESS NOTED. CALL LIGHT AT SIDE.
[2019-12-14 04:29] VITALS: BP 117/78
--- NOTE | 2019-12-14 06:12 | NUR ---
PT MEDICATED ORDERS PROVIDE. DENIES ANY OTHER NEEDS AT THIS TIME.
--- NOTE | 2019-12-14 07:22 | NUR ---
RECIEVED REPORT FROM MK SADLER. PT SLEEPING IN LOW SEMI FOWLERS POSITION UPON ENTERING ROOM. BREATHING IS EVEN AND UNLABORED WITH NO SIGNS OF ANY DIFFICULTY. ALVAREZ IN PLACE, URINE IS YELLOW AND CLEAR. WAS INFORMED IN REPORT THAT PT REFUSED IV FLUIDS, WILL ASK PT IF SHE WOULD LIKE TO CONTINUE THE FLUIDS ONCE AGAIN. NO SIGNS OF ANY PAIN OR DISCOMFORTS AT THIS TIME. ALL SAFTEY PRECAUTIONS IN PLACE WITH CALL LIGHT IN REACH. WILL CONTINUE TO MONITOR.
[2019-12-14 07:36] VITALS: BP 124/81
--- NOTE | 2019-12-14 07:45 | NUR ---
ASSESMENT AND VITALS COMPLETE. BP 124/81, HR 98, O2 95% ON 2L NASAL CANNUAL. PT IS A/O X3 AND AMBULATORY. HEART RHYTHM IS NORMAL, BOWEL SOUNDS ARE ACTIVE AND LUNG SOUNDS ARE CLEAR.RESPIRATIONS ARE EVEN AND UNLABORED. RADIAL AND PEDAL PULSES STRONG WITH NORMAL CAPILLARY REFILL. NO EDEMA IN ANY EXTREMITIES. TELE IN PLACE. PORT FLUSHED, SITE APPEARS PATENT AND HEALTHY. PT AGREED TO CONTINUE FLUIDS, STARTED NS @100 ORDERED. #[address], EMPTIED 600 ML. URINE IS CLEAR AND YELLOW. PT DENIES ANY PAIN WITH THE ALVAREZ. PT DENIES ANY PAIN OR DISCOMFORTS AT THIS TIME. ALL SAFTEY PRECAUTIONS IN PLACE WITH CALL LIGHT IN REACH, ENCORAGED PT TO CALL FOR ASSISTANCE. WILL CONTINUE TO MONITOR.
[2019-12-14 08:26] LABS: ANION GAP 10 (6-22 (CALC)); BUN 5 mg/dL (8-23); BUN/CREATININE RATIO 14 (12-20 (CALC)); CARBON DIOXIDE 31 mmol/l (22-30); CHLORIDE 89 mmol/l (95-108); CREATININE 0.3 mg/dL (0.5-1.0); GFR > 60 ML/MIN (>=60 (CALC)); GFR FOR AFR.AMER. > 60 ML/MIN (>=60 (CALC)); POTASSIUM 3.4 mmol/l (3.5-5.1); SODIUM 127 mmol/l (137-146)
--- NOTE | 2019-12-14 09:15 | NUR ---
PT RESTING IN SEMI FOWLERS POSITION WITH TINO PRADHAN AT BEDSIDE DISCUSSING POC;PT EXPRESSES EAGERNESS TO BE DISCHARGED HOME,PT RE-ASSURED;RESPIRATIONS SHALLOW ON RA, 6 MIN WALK TEST FOR OXYGEN QUALIFICATION COMPLETED AT THIS TIME;PT DROPPED TO 89% DURING WALK TEST WITHOUT OXYGEN;PT QUICKLY RETURNED TO 93% AT REST;ALVAREZ CATHETER D/C AT THIS TIME PER ORDER AND PT TOLERATED WELL,ENCOURAGED TO INCREASE ORAL INTAKE AND VOID;PT REPORTS NAUSEA AND REQUESTS PRN ANTIEMETIC, PRN COMPAZINE 10MG PO TO BE ADMINISTERED PER ORDER;IV FLUIDS CONTINUE TO INFUSE TO RIGHT UPPER CHEST PORT WITH EASE;PT DENIES ANY ADDITIONAL NEEDS AND IS ENCOURAGED TO CALL FOR ASSISTANCE IF NEEDED;FALL PRECAUTIONS IN PLACE WITH BED IN THE LOWEST POSITION AND CALL LIGHT IN REACH;WILL CONTINUE TO MONITOR
[2019-12-14 09:22] VITALS: BP 124/81
[2019-12-14] MEDS ORDERED: SOD CHLORIDE1 GM PO (11:14)
[2019-12-14] MEDS ORDERED: LASIX 20 MG TAB20 MG PO (11:14)
[2019-12-14] MEDS ORDERED: LEVAQUIN750 MG PO (11:15)
--- NOTE | 2019-12-14 11:23 | NUR ---
AT BEDSIDE DISCUSSING POC INCLUDING PLANS TO D/C HOME WITH HOME HEALTH AND PROVIDED RX FOR ABX,LASIX, AND SODIUM CHLORIDE TABLETS.PT VERBALIZES UNDERSTANDING.
--- NOTE | 2019-12-14 11:47 | NUR ---
PT REQUEST REPEAT WALK TEST FOR OXYGEN QUALIFICATION DUE TO SOB.PER IT IS OK TO REPEAT WALK TEST.PT WALKED DOWN HALLWAY AND O2 SATS DROPPED TO 87% ON RA;PT REPOSITIONED IN BED AND O2 SATS RECHECKED AND WNL;PT DENIES ANY ADDITIONAL NEEDS;CALL LIGHT IN REACH;WILL CONTINUE TO MONITOR
--- NOTE | 2019-12-14 12:46 | NUR ---
PT RESTING IN SEMI FOWLERS POSITION. BREATHING IS EVEN AND UNLABORED WITH NO SIGNS OF DISTRESS. NS RUNNING @100ML ORDERED, SITE APPEARS HEALTHY AND PATENT. PT VOIDED VERY SMALL AMOUNT, INFORMED PT THAT A MODERATE AMOUNT OF URINE IS NEEDED DUE TO REMOVAL OF ALVAREZ, PT STATED UNDERSTANDING. PT DENIES ANY PAIN OR DISCOMFORTS AT THIS TIME. ALL SAFTEY PRECAUTIONS IN PLACE WITH CALL LIGHT IN REACH. WILL CONTINUE TO MONITOR.
--- NOTE | 2019-12-14 14:50 | NUR ---
PT UNABLE TO URINATE.BLADDER SCAN OBTAINED AT THIS TIME RESULTING IN 167CC;PT DENIES ANY CURRENT PAIN OR DISCOMFORTS;LORNEANRP NOTIFIED AT THIS TIME AND NO NEW ORDERS RECEIVED;WILL CONTINUE TO MONITOR
--- NOTE | 2019-12-14 16:00 | NUR ---
PT RESTING IN SEMI FOWLERS POSITION. BREATHING IS EVEN AND UNLABORED. PT DENIES ANY PAIN OR DISCOMFORTS AT THIS TIME.ALL SAFTEY PRECAUTIONS IN PLACE WITH CALL LIGHT IN REACH, ENCOURAGED PT CALL FOR ASSISTANCE.WILL CONTINUE TO MONITOR.
--- NOTE | 2019-12-14 17:59 | NUR ---
GIVEN AND EXPLAINED DISCHARGE INSTRUSTIONS AND NEWMEDICATIONS TO PT. PT VERBALIZED UNDERSTANDING. CALLED AND EXPLAINED NEW MEDS AND DISCHARGE INSTRUCTIONS DUE TO PT BEING VERY FORGETFUL. VERBALIZED UNDERSTANDING. PORT DEACCESSED BY MK DAVIES. PT WAITING FOR TRANSPORTATION FROM .
--- NOTE | 2019-12-14 18:20 | NUR ---
Discharge instructions given. Patient verbalizes understanding of same. Discharged in stable condition via Wheelchair to Home with spouse. All belongings sent with pt. PT TRANSPORTED TO [facility] IN STABLE CONDITION VIA WHEELCHAIR ACCOMPANIED BY LOUIS QUINTANA;SPOUSE TO TRANSPORT PT HOME.
== END 2019-12-14 18:22 ==
LOC: ED 12:48 → ED-I 16:10 → ED 16:49 → ICU 16:50 → ED-I 16:50 → ICU 17:24 → MS2 12-13 13:43
PROVIDERS: ADMIT Internal Medicine; ATTEND Internal Medicine
PROC: 0T9B70Z Drainage of Bladder with Drainage Device, Via Natural or Artificial Opening (ICD-10-PCS; principal; 2019-12-13)
DX: J18.9 Pneumonia, unspecified organism (principal); C50.919 Malignant neoplasm of unspecified site of unspecified female breast; C78.00 Secondary malignant neoplasm of unspecified lung; K59.00 Constipation, unspecified; E87.1 Hypo-osmolality and hyponatremia; I10 Essential (primary) hypertension; E11.9 Type 2 diabetes mellitus without complications; E78.5 Hyperlipidemia, unspecified; E03.9 Hypothyroidism, unspecified; R51 Headache; D64.9 Anemia, unspecified; R33.9 Retention of urine, unspecified; Z79.84 Long term (current) use of oral hypoglycemic drugs; Z79.899 Other long term (current) drug therapy; Z20.828 Contact with and (suspected) exposure to other viral communicable diseases
CPT/HCPCS: G0378; J1650